=== PATIENT | female | born 1970 | race Caucasian/White ===

== ENCOUNTER 2017-04-28 00:51 | Emergency (ER) | payer OTHER ==
[~2017-04-28] VITALS: Ht 165.1 cm; Wt 118.2 kg
[2017-04-28] MEDS ORDERED: TOPAMAX 25MG25 M1 PO (01:01)
[2017-04-28] MEDS ORDERED: LEVOXYL0.025 MG PO (01:01)
[2017-04-28] MEDS ORDERED: ZYRTEC5 MG PO (01:02)
[2017-04-28] MEDS ORDERED: ZYLOPRIM 300MG300 MG PO (01:02)
[2017-04-28 01:03] VITALS: TEMP 97
[2017-04-28] MEDS ORDERED: SEROQUEL 2525 MG/TAB PO (01:03)
[2017-04-28] MEDS ORDERED: MIRTAZAPINE7.5 MG PO (01:03)
[2017-04-28 01:25] LABS: BASO % 0.4 % (0.0-2.0); EOS # 0.1 (0.0-0.7); GRAN # 3.4 (1.4-6.5); GRAN % 48.2 % (42.2-75.2); HEMATOCRIT 38.3 % (37.0-47.0); HEMOGLOBIN 12.8 g/dl (12.5-16.0); LYMPH # 2.8 (1.2-3.4); LYMPH % 40.1 % (20.0-51.0); MEAN CELL VOLUME 96 fl (80.0-100.0); MEAN CORPUSCULAR HEMOGLOBIN 32 pg (27.0-31.0); MEAN CORPUSCULAR HGB CONC 33 g/dl (33.0-37.0); MONO # 0.7 (0.1-0.6); MONO % 9.2 % (1.7-9.3); PLATELET COUNT 241 K/mm3 (130-400); RED BLOOD COUNT 4.01 M/mm3 (4.10-5.30); WHITE BLOOD COUNT 7.1 K/mm3 (4.8-10.8)
[2017-04-28 01:33] LABS: ADJUSTED CALCIUM 8.9 mg/dL (8.4-10.2); ALANINE AMINOTRANSFERASE 23 U/L (9-52); ALKALINE PHOSPHATASE 97 U/L (50-136); ANION GAP 12 mmol/L (7-16); BILIRUBIN,TOTAL 0.4 mg/dL (0.0-1.0); BLOOD UREA NITROGEN 11 mg/dL (7-17); CALCIUM 8.9 mg/dL (8.4-10.2); CARBON DIOXIDE 18 mmol/L (22-30); CHLORIDE 110 mmol/L (98-107); CREATININE, serum 0.73 mg/dL (0.52-1.25); GLUCOSE 117 mg/dL (74-106); POTASSIUM 3.7 mmol/L (3.4-5.0); SODIUM 141 mmol/L (137-145); TOTAL PROTEIN 6.6 gm/dL (6.4-8.2)
[2017-04-28 01:44] LABS: TROPONIN-I < 0.012 ng/mL (0.000-0.034)
[2017-04-28 05:46] VITALS: BP 129/79; PULSE 79
== END 2017-04-28 05:47 | disposition home or self-care (01) ==
LOC: COL.ER 00:51
PROVIDERS: Physician Assistant
DX: R55 Syncope and collapse (principal)
CPT/HCPCS: J7030